=== PATIENT | male | born 1955 | race Caucasian/White ===

== ENCOUNTER 2021-09-08 22:40 | Inpatient (IN) | payer OTHER ==
[~2021-09-08] VITALS: Ht 182.8 cm; Wt 108.0 kg
[~2021-09-08 22:40] MED LIST: ALDACTONE25 MG PO; AMBIEN10 M1 PO; AMITRIPTYLINE25 MG PO; ASPIRIN325 MG PO; ASPIRIN81 M1 PO; ATIVAN1 MG PO; BUSPIRONE10 MG PO; CARAFATE1 G1 PO; CARDIZEM60 MG PO; CIPRO500 MG PO; CITALOPRAM20 MG PO; DARVOCET N 1001 TAB PO; DAYPRO600 M1 PO; DULOXETINE HCL60 MG PO; FERROUS SULFAT324 M2 PO; FLEXERIL5 MG PO; FLOMAX0.4 MG PO; FLUDROCORTISON0.1 MG PO; IMDUR60 MG PO; Imdur SA60 MG PO; K DUR PO; KLOR-CON M2020 MEQ PO; LISINOPRIL/HCTZ1 TA2 PO; LOPRESSOR25 MG PO; MEDROL DOSEPAK4 MG PO; MIDODRINE HCL10 MG PO; MORPHINE SULFAT15 MG PO; NEURONTIN400 MG PO; NKHM; NORVASC10 MG PO; PHENERGAN25 M1 PO; PLAVIX75 MG PO; PRINIVIL5 MG PO; PROSCAR5 M1 PO; PROTONIX40 M1 PO; PROZAC20 MG PO; RANEXA500 M1 PO; REGLAN10 M1 PO; ROSUVASTATIN CA40 MG PO; SKELAXIN800 MG PO; SPIRIVA18 MCG IH; SPIRIVA18 MCG PO; SYMBICORT1 AE1 IH; TRAMADOL HCL50 MG PO; TRAZODONE100 MG PO; VESICARE10 MG PO; VICODIN 5/500 505 MG PO; VICODIN 500 MG-1 TAB PO; Vicodin 5/500 505 MG PO; ZOCOR40 MG PO
== END 2021-09-09 06:35 | DRG 871 ==
LOC: 4E 22:40
PROVIDERS: ADMIT Internal Medicine; ATTEND Internal Medicine
DX: A41.9 Sepsis, unspecified organism (principal); U07.1 COVID-19; J12.82 Pneumonia due to coronavirus disease 2019; E43 Unspecified severe protein-calorie malnutrition; E87.6 Hypokalemia; R73.9 Hyperglycemia, unspecified; D64.9 Anemia, unspecified; R91.8 Other nonspecific abnormal finding of lung field; Z51.5 Encounter for palliative care; Z68.32 Body mass index [BMI] 32.0-32.9, adult